=== PATIENT | female | born 1985 | race Caucasian/White ===

== ENCOUNTER 2017-02-23 11:19 | Emergency (ER) | payer BC, OTHER ==
--- NOTE | 2017-02-23 12:59 | RAD ---
INDICATION: Right leg swelling. COMPARISON: Comparison is made with a prior study from October 18, 2012. TECHNIQUE: Multiple real-time, color flow and Doppler tracings of the right lower extremity were obtained. FINDINGS: The common femoral, femoral, profunda femoral and popliteal veins all demonstrate normal compressibility, augmentation with compression and phasic response with respiration. The posterior tibial and peroneal veins demonstrate normal compressibility and augmentation with compression. IMPRESSION: NO EVIDENCE FOR DEEP VENOUS THROMBOSIS.
--- NOTE | 2017-02-23 13:50 | ED ---
Lower Extremity - HPI Summary HPI Summary: 31 female presents to ED with complaints of right lower extremity diffuse pain and intermittent swelling that has been ongoing for the past month and worsened over the past 3 days. Patient states it used to only occur when she was in bed at nighttime however it has been becoming more frequent and occurs during the day. Has never had anything like this before. States it is painful to touch. Patient states she is worried about a blood clot. Did have recent travel. Quit smoking 2 years ago. Was taking anticoagulants however discontinued them 2 weeks ago. Denies chest pain and trouble breathing. No other complaints. States leg is not that swollen currently. Has been taking tylenol, elevating, icing and has not had any improvement. PMHx includes to ischemic CVA's within the past year. No redness, bruising, edema or other obvious deformities noted. No numbness/tingling or weakness. No recent trauma or injury. - History of Current Complaint Chief Complaint: EDExtremityLower Stated Complaint: RT LOWER EXTREMITY SWOLLEN & PAINFUL Time Seen by Provider: 02/23/17 12:00 Hx Obtained From: Patient Hx Last Menstrual Period: 2.5 weeks ago. Mechanism Of Injury: Other - none Onset of Pain: Days Onset/Duration: Weeks Severity Initially: Mild Severity Currently: Moderate Pain Intensity: 6 Pain Scale Used: 0-10 Numeric Timing: Intermittent Location: Is Discrete @ - right LE Character Of Pain: Aching Associated Signs And Symptoms: Positive: Swelling Aggravating Factor(s): Nothing Alleviating Factor(s): Nothing Able to Bear Weight: Yes - Allergies/Home Medications Allergies/Adverse Reactions: Allergies Allergy/AdvReac Type Severity Reaction Status Date / Time Codeine Allergy Severe Vomiting Verified 02/23/17 11:28 Ketorolac Tromethamine Allergy Intermediate Hives Verified 02/23/17 11:28 [From Toradol] Gabapentin Allergy Headache Verified 02/23/17 11:28 Home Medications: Home Medications NK [No Home Medications Reported] 02/23/17 [History Confirmed 02/23/17] PMH/Surg Hx/FS Hx/Imm Hx Endocrine/Hematology History: Denies: Hx Diabetes, Hx Thyroid Disease Cardiovascular History: Denies: Hx Congestive Heart Failure, Hx Deep Vein Thrombosis, Hx Hypertension , Hx Myocardial Infarction, Hx Pacemaker/ICD Respiratory History: Denies: Hx Asthma, Hx Chronic Obstructive Pulmonary Disease (COPD), Hx Lung Cancer, Hx Pneumonia, Hx Pulmonary Embolism GI History: Reports: Other GI Disorders - Celiacs disease Denies: Hx Gall Bladder Disease, Hx Gastrointestinal Bleed, Hx Ulcer, Hx Urosepsis History: Reports: Hx Kidney Infection - 08/2015 Denies: Hx Kidney Stones, Hx Renal Disease Musculoskeletal History: Reports: Other Musculoskeletal History - Degenerative disc disease, chronic neck pain resulting in RUE weakness Sensory History: Reports: Hx Contacts or Glasses Denies: Hx Hearing Aid Opthamlomology History: Reports: Hx Contacts or Glasses Neurological History: Reports: Hx CVA - x2 Denies: Hx Dementia, Hx Migraine, Hx Seizures, Hx Transient Ischemic Attacks (TIA) Psychiatric History: Reports: Hx Anxiety Denies: Hx Depression, Hx Panic Disorder, Hx Schizophrenia, Hx Bipolar Disorder - Surgical History Surgery Procedure, Year, and Place: wisdom teeth (one extracted) - Immunization History Date of Tetanus Vaccine: 2009 Date of Influenza Vaccine: 2005 Immunizations Up to Date: Yes Infectious Disease History: No Infectious Disease History: Denies: Hx Clostridium Difficile, Hx Hepatitis, Hx Human Immunodeficiency Virus (HIV), Hx of Known/Suspected MRSA, Hx Shingles, Hx Tuberculosis, Hx Known/ Suspected VRE, Hx Known/Suspected VRSA, History Other Infectious Disease, Traveled Outside the [place] in Last 30 Days - Family History Known Family History: Positive: None Negative: Seizure Disorder, Blood Disorder - Social History Alcohol Use: 2 times per month Hx Substance Use: No Substance Use Type: Reports: None Substance Use Comment - Amount & Last Used: STATES HX OF COCAINE USE, CLEAN OVER 3 YEARS Hx Tobacco Use: Yes Smoking Status (MU): Former Smoker Type: Cigarettes Amount Used/How Often: 1-2 cigarettes per day Length of Time of Smoking/Using Tobacco: never used Have You Smoked in the Last Year: Yes Review of Systems Constitutional: Negative Cardiovascular: Negative Respiratory: Negative Positive: Arthralgia - RLE, Myalgia Positive: Other - swelling right LE Neurological: Negative All Other Systems Reviewed And Are Negative: Yes Physical Exam Triage Information Reviewed: Yes Vital Signs On Initial Exam: Initial Vitals Temp Pulse Resp BP Pulse Ox 98.6 F 82 16 133/72 98 02/23/17 11:23 02/23/17 11:23 02/23/17 11:23 02/23/17 11:23 02/23/17 11:23 Vital Signs Reviewed: Yes Appearance: Positive: Well-Appearing, No Pain Distress, Well-Nourished Skin: Positive: Warm, Skin Color Reflects Adequate Perfusion, Dry. Negative: Cold, Cyanosis @, Pale, Erythema @ Head/Face: Positive: Normal Head/Face Inspection Eyes: Positive: Conjunctiva Clear ENT: Positive: Hearing grossly normal Neck: Positive: Supple, Nontender, No Lymphadenopathy Respiratory/Lung Sounds: Positive: Clear to Auscultation, Breath Sounds Present. Negative: Rales, Rhonchi, Wheezes Cardiovascular: Positive: Normal, RRR, Pulses are Symmetrical in both Upper and Lower Extremities - 2+ strong pedal pulses and dorsalis pedis bilaterally. Negative: Murmur, Rub, Leg Edema Left, Leg Edema Right Musculoskeletal: Positive: Normal, Strength/ROM Intact, Pain @ - with movement or RLE, Other - normal temp of LE. Negative: Limited @, Interruption @, Edema Left, Edema Right - no edema or obvious deformities noted, no ecchymosis or crepitus no abnormal findings or signs of trauma, normal PE Neurological: Positive: Normal, Sensory/Motor Intact, Alert, Oriented to Person Place, Time, CN Intact II-III, NV Bundle Intact Distally, Normal Gait - Chapin Coma Scale Coma Scale Total: 15 Diagnostics - Vital Signs Vital Signs Temp Pulse Resp BP Pulse Ox 02/23/17 11:23 98.6 F 82 16 133/72 98 - Laboratory Lab Statement: Any lab studies that have been ordered have been reviewed, and results considered in the medical decision making process. - Ultrasound No standard instances Ultrasound Interpretation: No Acute Changes - NO EVIDENCE FOR DEEP VENOUS THROMBOSIS. Ultrasound Interpretation Completed By: Radiologist Lower Extremity Course/Dx - Course Course Of Treatment: given ibuprofen for pain. US obtained and negative for DVT. patient has good arterial blood supply without any concerns of vascular compromise. Patient denies any other complaints, no chest pain or difficulty breathing. normal vitals and PE. no concern for other etiology at this time. ruled out emergent etiology of DVT with known CVA history. Continue RICE and ibuprofen. Aware of worsening signs and symptoms to watch out for. Follow up with PCP for further evaluation and work up. Discussed case with Dr Valdez who agrees with plan. - Diagnoses Differential Diagnosis/HQI/PQRI: Positive: DVT, Other - arterial insufficiency, right leg edema, leg pain, PVD Provider Diagnoses: Right leg pain Discharge - Discharge Plan Condition: Stable Disposition: HOME Patient Education Materials: Leg Edema (ED), Leg Pain (ED) Referrals: Kal Larkin MD [Primary Care Provider] - Additional Instructions: Take ibuprofen to try and help with swelling and pain. Follow up with PCP for further evaluation and treatment. Any new or worsening signs/symptoms please seek medical attention immediately, as discussed.
[2017-02-23] MEDS ORDERED: Ibuprofen TAB* 600 MG PO ONE (14:34)
[2017-02-23] MEDS ORDERED: Ibuprofen TAB* 600 MG ONE (14:35)
[2017-02-23 14:58] VITALS: BP 130/74
== END 2017-02-23 14:56 | disposition home or self-care (01) ==
LOC: ED 11:19
DX: M79.661 Pain in right lower leg (principal); F17.210 Nicotine dependence, cigarettes, uncomplicated; Z86.73 Personal history of transient ischemic attack (TIA), and cerebral infarction without residual deficits; Z87.891 Personal history of nicotine dependence
CPT/HCPCS: 99282; A9270-GY

== ENCOUNTER 2017-04-11 13:17 | Emergency (ER) | payer BC ==
[2017-04-11 13:27] VITALS: BP 127/72
--- NOTE | 2017-04-11 13:58 | UC ---
Complaint Female HPI - HPI Summary HPI Summary: Pt presents with urinary pressure, frequency, and burning that started early this morning. She is about 8 weeks . Says she has had many UTIs in the past and this feels the same. Denies fever, chills, SOB, chest pain, abdominal pain, n/v/d/c, or flank pain. - History Of Current Complaint Chief Complaint: UCGU Stated Complaint: FREQUENT URINATION Time Seen by Provider: 04/11/17 13:33 Hx Obtained From: Patient Hx Last Menstrual Period: 02/13/17 Onset/Duration: Sudden Onset Timing: Constant Severity Initially: Mild Severity Currently: Mild Pain Intensity: 3 Pain Scale Used: 0-10 Numeric - Allergies/Home Medications Allergies/Adverse Reactions: Allergies Allergy/AdvReac Type Severity Reaction Status Date / Time MS Codeine [Codeine] Allergy Severe Vomiting Verified 04/11/17 13:28 MS Ketorolac Tromethamine Allergy Intermediate Hives Verified 04/11/17 13:28 [From Toradol] MS Gabapentin [Gabapentin] Allergy Headache Verified 04/11/17 13:28 Home Medications: Home Medications Aspirin EC Low Dose* [Ecotrin EC Low Dose 81 MG*] 1 tab PO DAILY 04/11/17 [ History Confirmed 04/11/17] PMH/Surg Hx/FS Hx/Imm Hx Previously Healthy: Yes Other History Of: Negative For: HIV, Hepatitis B, Hepatitis C - Surgical History Surgical History: Yes Surgery Procedure, Year, and Place: wisdom teeth (one extracted) - Family History Known Family History: Positive: None Negative: Seizure Disorder, Blood Disorder - Social History Occupation: Employed Full-time Lives: With Family Alcohol Use: None Substance Use Type: None Substance Use Comment - Amount & Last Used: STATES HX OF COCAINE USE, CLEAN OVER 3 YEARS Smoking Status (MU): Former Smoker Type: Cigarettes Amount Used/How Often: 1-2 cigarettes per day Length of Time of Smoking/Using Tobacco: never used Have You Smoked in the Last Year: Yes Household Exposure Type: Cigarettes - Immunization History Most Recent Influenza Vaccination: unk Most Recent Tetanus Shot: unk Most Recent Pneumonia Vaccination: unk Review of Systems Constitutional: Negative Skin: Negative Respiratory: Negative Cardiovascular: Negative Gastrointestinal: Negative Genitourinary: Dysuria, Frequency, Urgency Motor: Negative Neurovascular: Negative Psychological: Negative All Other Systems Reviewed And Are Negative: Yes Physical Exam Triage Information Reviewed: Yes Appearance: Well-Appearing, No Pain Distress, Well-Nourished Vital Signs: Initial Vital Signs Temp 99.4 F 04/11/17 13:23 Pulse 89 04/11/17 13:23 Resp 18 04/11/17 13:23 BP 127/72 04/11/17 13:23 Pulse Ox 100 04/11/17 13:23 Vital Signs Reviewed: Yes Neck: Positive: Supple, Nontender, No Lymphadenopathy Respiratory: Positive: Lungs clear, Normal breath sounds, No respiratory distress, No accessory muscle use Cardiovascular: Positive: RRR, No Murmur, Pulses Normal Abdomen Description: Positive: Nontender, No Organomegaly, Soft. Negative: CVA Tenderness (R), CVA Tenderness (L), Distended, Guarding Bowel Sounds: Positive: Present Neurological: Positive: Alert Psychological: Positive: Age Appropriate Behavior Skin: Negative: rashes Complaint Female Dx - Course Course Of Treatment: Urine shows 2+ Protein. 1+ Blood. and 3+ Leuks. Treat with Keflex for 5 days - Differential Dx/Diagnosis Provider Diagnoses: UTI Discharge - Discharge Plan Condition: Stable Disposition: HOME Prescriptions: Cephalexin CAP* [Keflex CAP*] 500 mg PO BID #10 cap Patient Education Materials: Urinary Tract Infection in Women (DC) Referrals: Kal Larkin MD [Primary Care Provider] - Additional Instructions: If you develop a fever, shortness of breath, chest pain, new or worsening symptoms - please call your PCP or go to the ED.
== END 2017-04-11 14:11 | disposition home or self-care (01) ==
LOC: UCEAST 13:17
DX: N39.0 Urinary tract infection, site not specified (principal); Z87.440 Personal history of urinary (tract) infections; Z79.82 Long term (current) use of aspirin; Z88.5 Allergy status to narcotic agent; Z88.8 Allergy status to other drugs, medicaments and biological substances; Z72.0 Tobacco use
CPT/HCPCS: 81003; 87086; 99212; G0463

== ENCOUNTER 2017-07-12 09:56 | Emergency (ER) | payer BC ==
[2017-07-12 10:14] VITALS: BP 131/75
--- NOTE | 2017-07-12 10:31 | UC ---
Respiratory Complaint HPI - HPI Summary HPI Summary: ONSET OF COUGH AND CHEST CONGESTION YESTERDAY. DENIES FEVER, SORE THROAT, EAR PAIN, NAUSEA/VOMITING. IS ABOUT 21 WEEKS . STATES BABY IS MOVING NORMALLY. NO VAGINAL BLEEDING, LOSS OF FLUID OR CONTRACTIONS. - History of Current Complaint Chief Complaint: UCGeneralIllness Stated Complaint: COUGH,BURNING CHEST Time Seen by Provider: 07/12/17 10:29 Hx Obtained From: Patient Hx Last Menstrual Period: 02/13/17 Onset/Duration: Gradual Onset, Lasting Days - 1 DAY, Still Present Timing: Constant Severity Initially: Moderate Severity Currently: Moderate Pain Intensity: 6 Pain Scale Used: 0-10 Numeric Character: Cough: Nonproductive Aggravating Factors: Nothing Alleviating Factors: Nothing Associated Signs And Symptoms: Positive: URI. Negative: Dyspnea, Fever, Chills , Pleuritic Chest Pain, Wheezing, Hemoptysis, Nasal Congestion - Allergies/Home Medications Allergies/Adverse Reactions: Allergies Allergy/AdvReac Type Severity Reaction Status Date / Time codeine Allergy Severe Vomiting Verified 07/12/17 10:17 ketorolac [From Toradol] Allergy Intermediate Hives Verified 07/12/17 10:17 gabapentin Allergy Headache Verified 07/12/17 10:17 Home Medications: Home Medications Cholecalciferol TAB* [Vitamin D TAB*] 2,000 unit PO DAILY 07/12/17 [History Confirmed 07/12/17] Pre Irwin Vitamin 1 tab PO DAILY 07/12/17 [History] PMH/Surg Hx/FS Hx/Imm Hx Neurological History: CVA Other History Of: Negative For: HIV, Hepatitis B, Hepatitis C - Surgical History Surgical History: Yes Surgery Procedure, Year, and Place: wisdom teeth (one extracted) - Family History Known Family History: Positive: Hypertension Negative: Seizure Disorder, Blood Disorder - Social History Alcohol Use: None Substance Use Type: None Substance Use Comment - Amount & Last Used: STATES HX OF COCAINE USE, CLEAN OVER 3 YEARS Smoking Status (MU): Former Smoker Type: Cigarettes Amount Used/How Often: 1-2 cigarettes per day Length of Time of Smoking/Using Tobacco: never used Have You Smoked in the Last Year: Yes Household Exposure Type: Cigarettes - Immunization History Most Recent Influenza Vaccination: unk Most Recent Tetanus Shot: unk Most Recent Pneumonia Vaccination: unk Review of Systems Constitutional: Negative ENT: Negative Respiratory: Cough Cardiovascular: Negative Gastrointestinal: Negative All Other Systems Reviewed And Are Negative: Yes Physical Exam Triage Information Reviewed: Yes Appearance: Well-Appearing, No Pain Distress, Well-Nourished Vital Signs: Initial Vital Signs Temp 98.6 F 07/12/17 10:07 Pulse 83 07/12/17 10:07 Resp 20 07/12/17 10:07 BP 131/75 07/12/17 10:07 Pulse Ox 100 07/12/17 10:07 Vital Signs Reviewed: Yes Eyes: Positive: Conjunctiva Clear ENT: Positive: Hearing grossly normal, Pharynx normal, TMs normal Neck: Positive: Supple, Nontender, No Lymphadenopathy Respiratory Exam: Normal Cardiovascular Exam: Normal Abdomen Description: Positive: Soft Musculoskeletal: Positive: No Edema Neurological: Positive: Alert Psychological: Positive: Age Appropriate Behavior Skin: Negative: rashes UC Diagnostic Evaluation - Laboratory O2 Sat by Pulse Oximetry: 100 Respiratory Course/Dx - Differential Dx/Diagnosis Provider Diagnoses: ACUTE URI Discharge - Sign-Out/Discharge Documenting (check all that apply): Discharge/Admit/Transfer - Discharge Plan Condition: Stable Disposition: HOME Patient Education Materials: Upper Respiratory Infection (ED) Referrals: Kal Larkin MD [Primary Care Provider] - If Needed Additional Instructions: YOUR SYMPTOMS ARE LIKELY VIRALLY MEDIATED AND SHOULD RESOLVE ON THEIR OWN WITH TIME. NO INDICATION FOR ANTIBIOTICS AT PRESENT. REST, HYDRATE, TYLENOL NEEDED. AVOID NSAIDS (EG. IBUPROFEN, NAPROXEN) IN . YOU MAY BE SICK FOR SOME WEEKS BUT SHOULD NOTICE IMPROVEMENT OVER THE NEXT SEVERAL WEEKS. SEEK FOLLOW-UP IF YOU ARE NOT IMPROVING EXPECTED. - Billing Disposition and Condition Condition: STABLE Disposition: HOME
== END 2017-07-12 10:59 | disposition home or self-care (01) ==
LOC: UCEAST 09:56
DX: O26.892 Other specified pregnancy related conditions, second trimester (principal); J06.9 Acute upper respiratory infection, unspecified; Z3A.21 21 weeks gestation of pregnancy; Z86.73 Personal history of transient ischemic attack (TIA), and cerebral infarction without residual deficits; Z88.5 Allergy status to narcotic agent; Z87.891 Personal history of nicotine dependence
CPT/HCPCS: 99211; G0463

== ENCOUNTER 2018-01-12 09:46 | Emergency (ER) | payer BC, OTHER ==
[2018-01-12 09:57] VITALS: BP 120/84
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
== END 2018-01-12 10:22 | disposition home or self-care (01) ==
LOC: UCEAST 09:46
DX: S39.012A Strain of muscle, fascia and tendon of lower back, initial encounter (principal); Z88.5 Allergy status to narcotic agent; Z88.6 Allergy status to analgesic agent; Z88.8 Allergy status to other drugs, medicaments and biological substances; Z87.891 Personal history of nicotine dependence; V89.2XXA Person injured in unspecified motor-vehicle accident, traffic, initial encounter; Y92.9 Unspecified place or not applicable
CPT/HCPCS: 99212; G0463